=== PATIENT | female | born 1950 ===

== ENCOUNTER 2021-07-08 07:23 | Outpatient (CLI) | payer OTHER | END 2021-07-08 07:24 | disposition home or self-care (01) | LOC: NUCLEAR 07:23 | PROVIDERS: ATTEND Internal Medicine Cardiovascular Disease | DX: I25.10 Atherosclerotic heart disease of native coronary artery without angina pectoris (principal); I70.0 Atherosclerosis of aorta; I11.9 Hypertensive heart disease without heart failure; I25.2 Old myocardial infarction ==